=== PATIENT | female | born 1950 | race Caucasian/White ===

== ENCOUNTER 2022-09-06 02:39 | Outpatient (CLI) | payer MEDICARE, BC, SELFPAY ==
[2022-09-06 11:45] LABS: Abs Immature Grans 0.01 10^3/uL (0.0-0.06); Absolute Basophil Count 0.01 10^3/uL (0.0-0.2); Absolute Eosinophil Count 0.08 10^3/uL (0.0-0.7); Absolute Lymphocyte Count 1.73 10^3/uL (1.2-3.4); Absolute Neutrophil Count 2.68 10^3/uL (1.2-6.7); Basophils % 0.2; Eosinophils % 1.6; HCT 41.2 % (36.0-46.0); HGB 13.3 g/dL (11.2-15.7); Immature Grans % 0.2; Lymphocytes % 35.2; MCH 28.5 pg (27.0-33.0); MCHC 32.3 % (32.0-36.0); MCV 88 fL (80-95); MPV 10.2 fL (8.0-11.0); Monocytes % 8.1; Neutrophils % 54.7; Platelet Count 184 10^3/uL (130-400); RBC 4.67 10^6/uL (3.93-5.22); RDW 13.3 % (11.7-14.6); RDW-SD 43.6 fL; WBC 4.91 10^3/uL (4.4-10.8)
[2022-09-06 12:43] LABS: ALT 20 U/L (14-59); AST 21 U/L (15-37); Albumin 3.4 g/dL (3.4-5.0); Alkaline Phosphatase 95 U/L (46-116); Anion Gap 6.4 mmol/L (3-11); BUN 16 mg/dL (7-18); Bilirubin, Total 0.4 mg/dL (0.2-1.0); CO2 29.6 mmol/L (21.0-32.0); CREATININE 0.7 mg/dL (0.55-1.02); Chloride 104 mmol/L (98-107); Estimated GFR 91.26 (mL/min/1.73m2); Glucose 87 mg/dL (74-106); Potassium 4.1 mmol/L (3.5-5.1); Sodium 140 mmol/L (136-145); TSH (W/Ref FT4) 3.49 uIU/mL (0.36-3.74); Total Protein 8.6 g/dL (6.4-8.2)
== END 2022-09-06 02:40 | disposition home or self-care (01) ==
LOC: LBO 02:39
PROVIDERS: PCP Nurse Practitioner; Visit Provider Legal Medicine
DX: R53.83 Other fatigue (principal)
CPT/HCPCS: 36415; 80053; 84443; 85025

== ENCOUNTER 2022-11-09 02:08 | Outpatient (CLI) | payer MEDICARE, BC, SELFPAY ==
--- NOTE | 2022-11-09 | DI.NM_ITS ---
APPROVED REPORT Exam: Exercise Treadmill Patient Location: Out-Patient Room/Bed: Stress Nurse: Yanet Sorensen RN Ordering Provider:BRADY AVERY, Contact Number: [phone] BMI: 23.34 Baseline Rhythm: Sinus Bradycardia Comment: Frequent PAC's Indications: SOB, Chest pressure Medical History Medical History: HLD, GERD, hypothyroidism, thyroid CA, recurrent basal cell carcinoma Cardiac Medications: Levothyroxine, pravastatin, vitamin C, vitamin D3 Allergies: Penicillin V, simvastatin Cardiac Risk Factors: Family hx, HLD Previous Cardiac Procedures: Angiogram (per patient report) Pretest Chest Pain Characteristics: None Exercise History: Physically active Physical Disabilities: None Lung Sounds: Clear to auscultation Heart Sounds: Bradycardia Stress Test Details Test: Exercise stress testing was performed using a Marcel protocol. Nuclear Acquisition: Rest Tc-99m/Stress Tc-99m 1 day Rest Isotope: Tc-99m Sestamibi. Dose: 10.4 Date: 11/09/2022 Injection Time: 0840 Stress Isotope: Tc-99m Sestamibi. Dose: 31.5 Date: 11/09/2022 Injection Time: 1010 HR Resting HR Supine: 47 bpm Max Heart Rate (APMHR): 147.693074 bpm Resting HR Standin bpm Target HR (85% APMHR): 124.036911 bpm Max HR Achieved: 135 bpm % of APMHR: 91.84 Recovery HR: 72 bpm HR response to stress: Normal HR response to stress BP Resting BP Supine: 148/80 mmHg Resting BP Standin/80 mmHg Max BP: 184/52 mmHg Recovery BP: 140/78 mmHg BP response to stress: Normal blood pressure response to stress. ECG Resting ECG: Sinus Bradycardia Ectopy: Frequent PAC's Stress ECG: Sinus Tachycardia ST Change: No significant ST segment changes noted Arrhythmia: Rare PAC Recovery ECG: Sinus Rhythm Recovery ST Change: Horizontal ST depression, Downsloping ST depression Lead(s): inferior leads Recovery ST Deviation: 1-2 mm Recovery Arrhythmia: Occasional PAC's, occasion PVC's Clinical Reason for Termination: Target HR Achieved, Dyspnea, Fatigue Stress Symptoms: General Fatigue, Dyspnea Exercise duration: 7 min30 sec Highest Stage Reached: Stage 3: 3.4 mph at 14% grade. Exercise capacity: 7.2 METs Angina Score: None Harrell Treadmill Score: 7.2 Rate Pressure Product: [id number] Stress ECG Conclusion 1. Resting electrocardiogram showed minor ST abnormalities 2. Patient exercised on the Marcel protocol and completed a workload of 7.2 METS 3. Normal heart rate and blood pressure response to exercise. The patient achieved 92% of predicted heart rate for age 4. The electrocardiographic portion of the test showed a long QT interval, did not meet criteria for myocardial ischemia 5. See MPI report Harrell Treadmill Score is 7.2 which is Low risk. MPI Conclusion Myocardial perfusion is normal. There is no ischemia or evidence of prior infarction EF is 59%, wall motion is normal Radiologist Interpretation Radiologist agrees with Career Based Intervention Coordinator's Interpretation. Radiologist Interpretation by: Jacoby Bautista MD Interpretation Date/Time: 11/11/2022 13:38:49
== END 2022-11-09 02:28 ==
LOC: DI 02:09
PROVIDERS: PCP Nurse Practitioner; Visit Provider Nurse Practitioner
DX: R06.02 Shortness of breath (principal)
CPT/HCPCS: 78452; 93016; 93018; 93017

== ENCOUNTER → 2023-06-24 01:20 | Outpatient (CLI) | payer MEDICARE, BC, SELFPAY ==
--- NOTE | 2023-06-24 | DI.DEXA_ITS ---
Exam(s) XR DEXA BONE DENSITY W/WO PEGGY EXAM: XR DEXA BONE DENSITY W/WO PEGGY CLINICAL HISTORY: POSTMENOPAUSAL OSTEOPOROSIS M81.0 Z78.0 TECHNIQUE: COMPARISON: No exams were available for comparison FINDINGS: Lateral Spine Image: Unremarkable. No compression deformities identified. Left hip: Total T-Score: -1.0 Total Z-Score: 0.8 T- and Z-scores: Within normal limits. Lumbar Spine: Total T-Score: -1.6 Total Z-Score: 0.7 T- and Z-scores: Findings are consistent with osteopenia. IMPRESSION: No evidence of osteoporosis.
== END ==
PROVIDERS: PCP Nurse Practitioner; Visit Provider Nurse Practitioner
DX: Z78.0 Asymptomatic menopausal state (principal); M81.0 Age-related osteoporosis without current pathological fracture; Z13.820 Encounter for screening for osteoporosis
CPT/HCPCS: 77080